=== PATIENT | female | born 1990 | race Caucasian/White ===

== ENCOUNTER → 2019-06-02 | Day surgery (SDC) | payer OTHER ==
[~2019-06-02] MED LIST: HYDROmorphone 2 MG/ML VIAL IV PRN; IV RINGERS,LACTATED 1000ML 1,000 ML IV SCH; LIDOCAINE 2% PF 5 ML VIAL. ONE; MORPHINE SULFATE 2 MG/ML VIAL. IV PRN; ONDANSETRON PF 4 MG/2 ML VIAL. IV PRN; PANT20TA2 PO; PROCHLORPERAZINE 10 MG/2 ML VIAL. IV PRN; PROPOFOL 20 ML IV ONE; SUCR1TAB PO; TRAZ150T49 PO; fentaNYL PF VIAL 100 MCG/2 ML VIAL IV PRN
[2019-06-02 08:35] VITALS: BP 113/59
--- NOTE | 2019-06-05 17:06 | PATHOLOGY ---
[facility] Accession Number: [id number] . 01 Material submitted: . esophagus - DISTAL ESOPHAGUS BIOPSY. Modifiers: distal . 01 Clinical history: . Abdominal pain. . 02 Diagnosis: Esophageal biopsies, distal esophagus: - Ulcerative esophagitis. (JPM:nova; 06/05/2019) R 06/05/2019 1323 Local . 02 Comment: Sections of the distal esophageal biopsy predominantly reveal segments of acute necroinflammatory exudate and granulation tissue showing acute and chronic inflammation. There is also a segment of focally ulcerated hyperplastic squamous esophageal mucosa showing acute and chronic inflammation and a few intraepithelial eosinophils. There are no viral inclusions identified. There is no evidence of Ellison's change, dysplasia, or malignancy. The findings are consistent with reflux esophagitis with ulceration. (JPM:nova; 06/05/2019) . 02 Electronically signed: . Kemar Bains MD, Pathologist NPI- [id number] . 01 Gross description: . Received in formalin labeled "See, Samanthia, distal esophagus BX rule out Ellison's" is a 0.6 x 0.5 x 0.1 cm aggregate of hussein-brown soft tissue fragments. The specimen is submitted entirely in A1. [place] [place] [facility] 06/04/2019 1020 Local . 02 Pathologist provided ICD-10: K22.10, K20.9 . 02 CPT . 135178 Specimen Comment: A courtesy copy of this report has been sent to [phone], [phone] Specimen Comment: [phone] Specimen Comment: Report sent to / DR CHRISTIANSEN Performed at: [address], [place], [place] [id number] MD Mickey Gant MD Phone: [phone] Performed at: [address] [id number] MD Kemar Bains MD Phone: [phone]
== END | disposition home or self-care (01) ==
LOC: ENDOS 06:57
PROVIDERS: ATTEND Internal Medicine Gastroenterology
DX: R13.10 Dysphagia, unspecified (principal); K21.0 Gastro-esophageal reflux disease with esophagitis; K22.2 Esophageal obstruction; K29.70 Gastritis, unspecified, without bleeding; F41.9 Anxiety disorder, unspecified; F32.9 Major depressive disorder, single episode, unspecified; Z98.890 Other specified postprocedural states
CPT/HCPCS: 43239; 43450; 81025; J2704; J3490

== ENCOUNTER → 2019-09-07 | Outpatient (CLI) | payer OTHER ==
[2019-06-02 08:35] VITALS: BP 113/59
[~2019-09-07] MED LIST changes: -HYDROmorphone 2 MG/ML VIAL IV PRN; -IV RINGERS,LACTATED 1000ML 1,000 ML IV SCH; -LIDOCAINE 2% PF 5 ML VIAL. ONE; -MORPHINE SULFATE 2 MG/ML VIAL. IV PRN; -ONDANSETRON PF 4 MG/2 ML VIAL. IV PRN; -PROCHLORPERAZINE 10 MG/2 ML VIAL. IV PRN; -PROPOFOL 20 ML IV ONE; -fentaNYL PF VIAL 100 MCG/2 ML VIAL IV PRN
== END | disposition home or self-care (01) ==
LOC: LAB 12:58
PROVIDERS: ATTEND Surgery
DX: Z11.59 Encounter for screening for other viral diseases (principal)
CPT/HCPCS: U0003-CS

== ENCOUNTER 2019-09-12 10:35 | Day surgery (SDC) | payer OTHER ==
[~2019-09-12] VITALS: Ht 160 cm; Wt 109.5 kg
[~2019-09-12 10:35] MED LIST changes: +ACETAMINOPHEN 500 MG TABLET PO PRN; +ERYT250C33 PO; +HYDROmorphone 2 MG/ML VIAL IV PRN; +LIDOCAINE 1% PF 5 ML VIAL. ONE; +PROCHLORPERAZINE 10 MG/2 ML VIAL. IV PRN; +PROPOFOL 10 MG/ML (20ML) VIAL. IV ONE
[2019-09-12] MEDS ORDERED: ROCURONIUM 50 MG/5 ML VIAL. ONE (10:36)
[2019-09-12] MEDS ORDERED: fentaNYL PF VIAL 100 MCG/2 ML VIAL ONE ×2 (10:36→13:11)
[2019-09-12] MEDS ORDERED: MIDAZOLAM HCL/PF 2 MG/2 ML VIAL. ONE (10:36)
[2019-09-12] MEDS: IV RINGERS,LACTATED 1000ML 1,000 ML IV SCH ×2 (11:15→15:47)
[2019-09-12] MEDS ORDERED: BUPIVACAINE-EPI 0.25%-1:200000 MPF 30 ML VIAL. ONE (11:33)
[2019-09-12] MEDS ORDERED: SURGICEL HEMOSTAT 4X8 EACH. ONE (11:33)
[2019-09-12] MEDS ORDERED: IOHEXOL 300 MG/ML 50 ML VIAL. ONE (11:33)
[2019-09-12] MEDS ORDERED: ceFAZolin 2GM PREMIX 2 GM/50 ML BAG IV ONE (12:00)
[2019-09-12] MEDS ORDERED: SUCCINYLCHOLINE 200 MG/10 ML VIAL. ONE (12:21)
[2019-09-12] MEDS ORDERED: NEOSTIGMINE METHYLSULFATE 5 MG/5 ML SYRINGE. ONE (12:43)
[2019-09-12] MEDS ORDERED: GLYCOPYRROLATE 1 MG/5 ML VIAL. ONE (12:43)
[2019-09-12] MEDS ORDERED: DEXAMETHASONE SOD PHOS 4 MG/ML VIAL ONE (12:51)
[2019-09-12] MEDS ORDERED: ONDANSETRON PF 4 MG/2 ML VIAL. ONE (12:51)
[2019-09-12] MEDS ORDERED: KETOROLAC 30 MG/ML VIAL. ONE (12:56)
--- NOTE | 2019-09-12 13:08 | PDOC4 ---
Operative Note Operative Note Date: 09/12/2019 130 Preoperative diagnosis: Biliary dyskinesia Postoperative diagnosis: Same Procedure: Laparoscopic cholecystectomy Surgeon: Yoshi Specimen: Gallbladder Dictation: Patient is 29-year-old female is had right upper quadrant abdominal pain postprandial nausea. Ultrasound of her abdomen was normal showing no stones HIDA scan was also within normal range that she did have pain with the injection of Kinevac. After long discussion about potential benefits for laparoscopic cholecystectomy and possibly not being beneficial at all patient is willing to go ahead with laparoscopic cholecystectomy. Procedure of laparoscopic cholecystectomy was explained to the patient detail risk-benefit were also discussed including bleeding infection injury to intra-abdominal contents possibly necessitating further open operations alternatives to this procedure also discussed with patient who seemed to understand and gave both verbal and written consent had a procedure performed. Patient was taken to the operating room placed in supine position general anesthesia was initiated once patient was sleeping intubated her abdomen was prepped and draped usual sterile fashion using ChloraPrep. An area just below the umbilicus injected quarter percent Marcaine with epinephrine incision was made 11 blade scalpel a varies needle was placed within the abdomen creating pneumoperitoneum once this was complete 11 mm port was placed and a 5 mm camera was placed within the abdomen abdomen was inspected no other red maladies were noted. A 5 mm port was placed in the epigastrium a 5 mm port was placed in the right lateral abdomen and a 5 mm port was placed in the right midabdomen the dome of the gallbladder is grasped directed cephalad the infundibulum of the gallbladder is grasped directed laterally exposing the triangle of adherent tissues the triangle were taken down with blunt dissection exposing the cystic duct and cystic artery both were doubly clipped and transected the gallbladder was taken off the liver with hook electrocautery placed in Endo Catch bag removed and the umbilicus. The right upper quadrant is irrigated and suctioned dry hemostasis can be appropriate and the pneumoperitoneum was reduced all ports were removed the fascial defect at the umbilicus closed with [id number] 0 Vicryl suture and the skin is reapproximated all port sites for subcuticular Monocryl Mastisol Steri-Strips and island dressings were applied. Patient was awakened and extubated in the operating room taken to recovery in stable condition all sponge instrument needle counts listed as correct estimated blood loss 5 mL. JOHANNA KENNEY MD Sep 12, 2019 13:08
--- NOTE | 2019-09-12 13:12 | DISCH ---
DISCHARGE INSTRUCTIONS Condition on Discharge Condition on Discharge: Stable Activity After Discharge Activity Instructions for Disc: Avoid exertion Other activity instructions: no lifting >20lbs, for 2 weeks Diet after Discharge Diet after Discharge: Low Fat Wound Incision Care Other wound/incision instructi: May shower in 24 hours Contacting the after DC Call your doctor for: If your condition worsens Follow-Up Follow up with: Dr. Kenney in 2 weeks JOHANNA KENNEY MD Sep 12, 2019 13:12
[2019-09-12] MEDS: fentaNYL PF VIAL 100 MCG/2 ML VIAL IVP PRN ×2 (13:37→13:43)
[2019-09-12] MEDS ORDERED: oxyCODONE/APAP 5/325 1 TAB TABLET PO ONE ×2 (13:45)
[2019-09-12] MEDS ORDERED: PROCHLORPERAZINE 10 MG/2 ML VIAL. ONE (13:47)
[2019-09-12] MEDS ORDERED: MORPHINE SULFATE 2 MG/ML VIAL. ONE (13:47)
[2019-09-12] MEDS: MORPHINE SULFATE 2 MG/ML VIAL. IV PRN ×2 (13:55→15:04)
[2019-09-12] MEDS ORDERED: OXYC-325 PO (13:56)
[2019-09-12 14:45] VITALS: BP 124/64
--- NOTE | 2019-09-14 18:06 | PATHOLOGY ---
[facility] Accession Number: [id number] . 01 Material submitted: . gallbladder - GALLBLADDER SAC WITH CONTENTS . 01 Clinical history: . Biliary pain . 02 Diagnosis: Gallbladder, laparoscopic cholecystectomy: - Cholesterolosis, focal. - Chronic cholecystitis. (JPM:kurtis; 09/14/2019) S 09/14/2019 1001 Local . 02 Comment: There are no calculi identified within the gallbladder lumen or specimen container. There is no evidence of malignancy. (JPM:kurtis; 09/14/2019) . 02 Electronically signed: . Kemar Bains MD, Pathologist NPI- [id number] . 01 Gross description: . The specimen is received in formalin, labeled "Jade See, gallbladder sac with contents". Received is an intact gallbladder measuring 6.5 x 2.4 x 2.0 cm in greatest dimensions displaying a blue-griffin serosal surface. Opening the specimen reveals a velvety, bile-stained mucosa with a gallbladder wall thickness of 0.1 cm. Calculi are not present, and no masses or lesions are noted grossly. Clinical Psychologist sections, to include the proximal margin, are submitted in cassette A1. ([facility]; 09/13/2019) QAC/QAC 09/13/2019 1031 Local . 02 Pathologist provided ICD-10: K82.4, K81.1 . 02 CPT . 709527 Specimen Comment: A courtesy copy of this report has been sent to [phone] Specimen Comment: [phone] Specimen Comment: Report sent to / DR CHRISTIANSEN Performed at: 01 [facility] [address] [place] [address] [address], [place], [place] [id number] MD Mickey Gant MD Phone: [phone] Performed at: [address] [id number] MD Kemar Bains MD Phone: [phone]
== END 2019-09-12 15:50 | disposition home or self-care (01) ==
LOC: SURG 10:35
PROVIDERS: ATTEND Surgery
DX: K81.1 Chronic cholecystitis (principal); K21.9 Gastro-esophageal reflux disease without esophagitis; F32.9 Major depressive disorder, single episode, unspecified; Z98.890 Other specified postprocedural states; Z79.899 Other long term (current) drug therapy
CPT/HCPCS: 47562; 81025; A7015; J0330; J0690; J0780; J1100; J1885; J2250; J2270; J2405; J2704; J2710; J3010; J3490; J7030; Q9967; 88304